=== PATIENT | female | born 1985 | race Caucasian/White ===

== ENCOUNTER 2017-08-13 02:52 | Inpatient (IN) | payer SELFPAY ==
[2017-08-13] MEDS ORDERED: METHYLERGONOVINE 0.2 MG INJ IM (03:30)
[2017-08-13] MEDS ORDERED: CARBOPROST 250 MCG INJ IM (03:30)
[2017-08-13] MEDS ORDERED: LIDOCAINE 1% (MPF) 30 ML INJ INJ (03:30)
[2017-08-13] MEDS ORDERED: IBUPROFEN 600 MG TAB PO (03:30)
[2017-08-13] MEDS ORDERED: MISOPROSTOL 200 MCG TAB PR (03:30)
[2017-08-13] MEDS ORDERED: OXYTOCIN 30 UNITS/LR 500 ML IV ×3 (03:30)
[2017-08-13] MEDS: LACTATED RINGER'S 1,000 ML IV ×3 (03:42→17:24)
[2017-08-13 03:45] LABS: ADD MAN DIFF? NO
[2017-08-13 04:08] LABS: WHITE BLOOD COUNT 7.3 10^3/ul (4.8-10.8)
[2017-08-13 04:08] LABS: ABNORMAL IP MESSAGE 1; BASOPHIL # 0.1 10^3/ul (0.0-0.1); BASOPHILS % 0.8 % (0.0-2.0); EOSINOPHILS # 0.1 10^3/ul (0.0-0.5); EOSINOPHILS % 0.8 % (0.0-7.0); HEMATOCRIT 35.3 % (37.0-47.0); HEMOGLOBIN 12.3 g/dl (12.0-16.0); LYMPHOCYTES # 2.5 10^3/ul (0.8-2.9); LYMPHOCYTES % 34.3 % (15.0-51.0); MEAN CORPUSCULAR HGB CONC 34.8 g/dl (32.0-37.0); MEAN CORPUSCULAR VOLUME 94.6 fl (82.0-101.0); MONOCYTE # 0.3 10^3/ul (0.3-0.9); MONOCYTES % 4.3 % (0.0-11.0); NEUTROPHIL # 4.3 10^3/ul (1.6-7.5); RED BLOOD COUNT 3.73 10^6/ul (4.20-5.40); RED CELL DISTRIBUTION WIDTH 13.2 % (11.5-14.5)
[2017-08-13 04:19] LABS: INR 1.03; PARTIAL THROMBOPLASTIN TIME 28.2 Sec (25.0-35.0); POSITIVE DIFF @See below; PROTIME 13.6 Sec (11.9-14.9); PT RATIO 1.1
[2017-08-13 04:22] LABS: PLATELET ESTIMATE DECREASED
[2017-08-13 04:23] LABS: PLATELET COUNT 84 10^3/UL (140-415)
[2017-08-13 04:44] LABS: HEPATITIS B SURFACE ANTIGEN NEGATIVE (NEGATIVE)
[2017-08-13] MEDS: MISOPROSTOL 25 MCG CAPSULE PO ×2 (04:58→09:00)
[2017-08-13 10:23] LABS: URINE BLOOD (Dip) POC Negative (NEGATIVE); URINE GLUCOSE (Dip) POC Negative (NEGATIVE); URINE KETONES (Dip) POC Negative (NEGATIVE); URINE LEUKOCYTE EST (Dip) POC Negative (NEGATIVE); URINE NITRITE (Dip) POC Negative (NEGATIVE); URINE TOTAL PROTEIN POC Negative (NEGATIVE)
[2017-08-13] MEDS: OXYTOCIN 30 UNITS/LR 500 ML IV (11:11)
[2017-08-13 12:31] LABS: ALANINE AMINOTRANSFERASE 18 IU/L (13-69); ALBUMIN/GLOBULIN RATIO 0.93; ALKALINE PHOSPHATASE 280 IU/L (42-121); ANION GAP 10 (8-16); ASPARTATE AMINO TRANSFERASE 21 IU/L (15-46); BILIRUBIN,INDIRECT 0.3 mg/dl (0-1.1); BILIRUBIN,TOTAL 0.3 mg/dl (0.2-1.3); BLOOD UREA NITROGEN 14 mg/dl (7-20); CALCIUM 11.3 mg/dl (8.4-10.2); CARBON DIOXIDE 20 mmol/L (21-31); CHLORIDE 112 mmol/L (97-110); CREATININE 0.69 mg/dl (0.44-1.00); GLUCOSE 104 mg/dl (70-220); SODIUM 138 mmol/L (135-144); TOTAL PROTEIN 6.2 g/dl (6.1-8.1)
[2017-08-13 18:07] LABS: RAPID PLASMA REAGIN NONREACTIVE (NR)
[2017-08-13] MEDS: BUTORPHANOL 2 MG INJ IV ×2 (19:23→22:10)
[2017-08-13] MEDS: URSODIOL 300 MG CAP PO (22:11)
[2017-08-14] MEDS: LACTATED RINGER'S 1,000 ML IV ×5 (00:10→20:20)
[2017-08-14] MEDS ORDERED: FENTAnyl 2MCG/ML-ROPIV 0.2% 100 ML (00:32)
[2017-08-14] MEDS ORDERED: NALOXONE (0.4 MG/ML) INJ IV ×2 (01:00→08:00)
[2017-08-14] MEDS: FENTAnyl 2MCG/ML-ROPIV 0.2% 100 ML BAG EPI ×2 (05:21→05:22)
[2017-08-14] MEDS ORDERED: FENTAnyl 50 MCG/ML VIAL ×2 (06:39→07:16)
[2017-08-14] MEDS ORDERED: LIDOCAINE 1.5%/EPI MPF (SDV) 30 ML VIAL (06:39)
[2017-08-14] MEDS ORDERED: NA BICARBONATE 8.4% 50 ML SYG (06:39)
[2017-08-14] MEDS ORDERED: ONDANSETRON 4 MG INJ (06:48)
[2017-08-14] MEDS ORDERED: DEXAMETHASONE 4 MG/ML 1 ML INJ (06:48)
[2017-08-14] MEDS ORDERED: FAMOTIDINE 20 MG INJ (06:48)
[2017-08-14] MEDS ORDERED: CLINDAMYCIN 900 MG/D5W (PMX) 50 ML IVPB (06:50)
[2017-08-14] MEDS ORDERED: OXYCODONE/ACETAMINOPHEN (5/325) TAB PO (07:00)
[2017-08-14] MEDS ORDERED: MISOPROSTOL 200 MCG TAB PR (07:00)
[2017-08-14] MEDS ORDERED: OXYTOCIN 10 UNIT INJ (07:03)
[2017-08-14] MEDS ORDERED: MIDAZOLAM 1 MG/ML 2 ML INJ (07:12)
[2017-08-14] MEDS ORDERED: morphine SULFATE/PF (10 MG/10 ML) INJ (07:22)
[2017-08-14] MEDS: OXYTOCIN 30 UNITS/LR 500 ML IVPB (07:30)
[2017-08-14] MEDS ORDERED: ONDANSETRON 4 MG INJ IV (08:00)
[2017-08-14] MEDS ORDERED: NALBUPHINE HCL (10 MG/1 ML) INJ IV (08:00)
[2017-08-14] MEDS ORDERED: ZOLPIDEM 5 MG TAB PO (08:00)
[2017-08-14] MEDS ORDERED: HYDROmorphONE 0.5 MG/0.5 ML SYG IV ×2 (08:00)
[2017-08-14] MEDS: OXYTOCIN 30 UNITS/LR 500 ML IV ×5 (08:09→23:30)
[2017-08-14] MEDS: SENNA/DOCUSATE NA (8.6MG/50MG) TAB PO ×2 (09:00→20:44)
[2017-08-14] MEDS: NIFEdipine (XL) 60 MG TAB PO (09:45)
[2017-08-14] MEDS: GENTAMICIN 120 MG/NS (PMX) 100 ML IVPB (10:15)
[2017-08-14] MEDS ORDERED: IBUPROFEN 600 MG TAB PO (12:00)
[2017-08-14] MEDS: DIPHENHYDRAMINE 50 MG INJ IV (20:44)
[2017-08-15] MEDS: KETOROLAC 30 MG INJ IV (03:11)
[2017-08-15] MEDS: OXYTOCIN 30 UNITS/LR 500 ML IV ×3 (03:30→11:30)
[2017-08-15] MEDS: LACTATED RINGER'S 1,000 ML IV ×2 (04:21→06:42)
[2017-08-15] MEDS: SENNA/DOCUSATE NA (8.6MG/50MG) TAB PO ×2 (08:55→21:36)
[2017-08-15] MEDS: NIFEdipine (XL) 60 MG TAB PO (08:56)
[2017-08-15 09:38] LABS: ADD MAN DIFF? NO
[2017-08-15 09:47] LABS: ABNORMAL IP MESSAGE 1; BASOPHILS % 0.3 % (0.0-2.0); EOSINOPHILS % 0.1 % (0.0-7.0); HEMATOCRIT 31.3 % (37.0-47.0); HEMOGLOBIN 10.7 g/dl (12.0-16.0); LYMPHOCYTES # 2.7 10^3/ul (0.8-2.9); LYMPHOCYTES % 19.3 % (15.0-51.0); MEAN CORPUSCULAR HEMOGLOBIN 33.1 pg (29.0-33.0); MEAN CORPUSCULAR HGB CONC 34.2 g/dl (32.0-37.0); MEAN CORPUSCULAR VOLUME 96.9 fl (82.0-101.0); MEAN PLATELET VOLUME 13.8 fl (7.4-10.4); MONOCYTE # 0.5 10^3/ul (0.3-0.9); MONOCYTES % 3.3 % (0.0-11.0); NEUTROPHIL # 10.8 10^3/ul (1.6-7.5); NEUTROPHILS % 76.6 % (39.0-77.0); RED BLOOD COUNT 3.23 10^6/ul (4.20-5.40); RED CELL DISTRIBUTION WIDTH 13.8 % (11.5-14.5)
[2017-08-15 09:47] LABS: WHITE BLOOD COUNT 14.1 10^3/ul (4.8-10.8)
[2017-08-15 09:49] LABS: PLATELET COUNT 74 10^3/UL (140-415); POSITIVE DIFF @See below
[2017-08-15] MEDS: IBUPROFEN 600 MG TAB PO ×2 (12:37→17:38)
[2017-08-15] MEDS: NA PHOSPHATE/BIPHOS 133 ML ENEMA PR (17:37)
[2017-08-15] MEDS: LANOLIN 7 GM TUBE TOP (17:38)
[2017-08-16] MEDS: OXYCODONE/ACETAMINOPHEN (5/325) TAB PO ×3 (00:31→13:40)
[2017-08-16] MEDS: IBUPROFEN 600 MG TAB PO ×4 (00:32→17:52)
[2017-08-16] MEDS: SENNA/DOCUSATE NA (8.6MG/50MG) TAB PO (09:34)
[2017-08-16] MEDS: NIFEdipine (XL) 60 MG TAB PO (09:43)
[2017-08-17] MEDS ORDERED: MEASLES,MUMPS,RUBELLA VACCINE INJ SC* (09:00)
[2017-08-17] MEDS ORDERED: DIPHTH/TET/ACEL PERTUSS (ADULT) 0.5 ML VIAL IM* (09:00)
== END 2017-08-16 19:00 | disposition home or self-care (01) | DRG 765 ==
LOC: L-D 08-14 06:34 → PP1 08-14 15:10
PROVIDERS: Specialist
PROC: 10D00Z1 Extraction of Products of Conception, Low, Open Approach (ICD-10-PCS; principal; 2017-08-14)
DX: O76 Abnormality in fetal heart rate and rhythm complicating labor and delivery (principal); K83.1 Obstruction of bile duct; O26.62 Liver and biliary tract disorders in childbirth; O99.12 Other diseases of the blood and blood-forming organs and certain disorders involving the immune mechanism complicating childbirth; D69.6 Thrombocytopenia, unspecified; O13.4 Gestational [pregnancy-induced] hypertension without significant proteinuria, complicating childbirth; Z37.0 Single live birth; Z3A.38 38 weeks gestation of pregnancy
CPT/HCPCS: 62319; 80053; 81003; 85025; 85610; 85730; 86592; 86850; 86900; 86901; 87340; 99464